=== PATIENT | female | born 1995 | race Caucasian/White ===

== ENCOUNTER 2018-03-30 12:09 | Emergency (ER) | payer OTHER ==
[~2018-03-30] VITALS: Ht 162.6 cm; Wt 72.6 kg
[2018-03-30 14:21] VITALS: BP 109/62
== END 2018-03-30 14:21 | disposition home or self-care (01) ==
LOC: ED 12:09
DX: L25.9 Unspecified contact dermatitis, unspecified cause (principal); R11.0 Nausea; R06.02 Shortness of breath
CPT/HCPCS: J7512; Q0163